=== PATIENT | male | born 1935 | race Caucasian/White ===

== ENCOUNTER 2017-05-29 03:04 | Emergency (ER) | payer MEDICARE, OTHER ==
[2017-05-29 03:47] VITALS: BP 149/85
--- NOTE | 2017-05-29 04:05 | EDM.PDOC ---
ED HPI GENERAL MEDICAL PROBLEM - General Chief Complaint: General Stated Complaint: IN BY AMBULANCE Time Seen by Provider: 05/29/17 03:55 Source of Information: Reports: Patient History Limitations: Reports: No Limitations - History of Present Illness INITIAL COMMENTS - FREE TEXT/NARRATIVE: This 82 yo male patient was brought to the ED by [facility] due to an abrupt onset of dizziness. The patient reports that he was feeling very normally when he went to bed at 2230, but when he woke up to use the bathroom prior to calling the ambulance he was dizzy. The patient reports no history of similar symptoms in the past. The patient reports that he continues to feel a little dizzy when he sits up or moves abruptly. Onset: Today Duration: Minutes:, Intermittent Location: Reports: Generalized Quality: Reports: Other Severity: Moderate Improves with: Reports: Rest Worsens with: Reports: Movement Associated Symptoms: Reports: Syncope, Other (dizziness with movement ) - Related Data Allergies Allergy/AdvReac Type Severity Reaction Status Date / Time No Known Allergies Allergy Verified 07/05/16 22:25 Home Meds: Home Meds Lisinopril 20 mg PO DAILY 07/05/16 [History] Meloxicam [Meloxicam] 15 mg PO DAILY 07/05/16 [History] glyBURIDE [Glyburide] 5 mg PO DAILY 07/05/16 [History] Past Medical History Cardiovascular History: Reports: Hypertension Endocrine/Metabolic History: Reports: Diabetes, Type II Social & Family History - Tobacco Use Smoking Status *Q: Former Smoker - Caffeine Use Caffeine Use: Reports: Coffee, Soda - Recreational Drug Use Recreational Drug Use: No ED ROS GENERAL - Review of Systems Review Of Systems: ROS reveals no pertinent complaints other than HPI. ED EXAM, GENERAL - Physical Exam Exam: Not Obtained Exam Limited By: No Limitations General Appearance: Alert, WD/WN, Mild Distress Eye Exam: Bilateral Eye: EOMI, Normal Inspection, PERRL Ears: Normal External Exam, Normal Canal, Hearing Grossly Normal, Normal TMs Nose: Normal Inspection, Normal Mucosa, No Blood Throat/Mouth: Normal Inspection, Normal Lips, Normal Teeth, Normal Gums, Normal Oropharynx, Normal Voice, No Airway Compromise Head: Atraumatic, Normocephalic Neck: Normal Inspection, Supple, Non-Tender, Full Range of Motion Respiratory/Chest: No Respiratory Distress, Lungs Clear, Normal Breath Sounds, No Accessory Muscle Use, Chest Non-Tender Cardiovascular: Normal Peripheral Pulses, Regular Rate, Rhythm, No Edema, No Gallop, No JVD, No Murmur, No Rub, Other (irregular beats) GI/Abdominal: Normal Bowel Sounds, Soft, Non-Tender, No Organomegaly, No Distention, No Abnormal Bruit, No Mass (Male) Exam: Deferred Rectal (Males) Exam: Deferred Back Exam: Normal Inspection, Full Range of Motion, NT Extremities: Normal Inspection, Normal Range of Motion, Non-Tender, Normal Capillary Refill, No Pedal Edema Neurological: Alert, Oriented, CN II-XII Intact, Normal Cognition, Normal Gait, Normal Reflexes, No Motor/Sensory Deficits Psychiatric: Normal Affect, Normal Mood Skin Exam: Warm, Dry, Intact, Normal Color, No Rash Lymphatic: No Adenopathy EKG INTERPRETATION EKG Date: 05/29/17 Time: 04:00 Rhythm: NSR [place]: Normal P-Wave: Present QRS: Normal ST-T: Normal QT: Normal Comparison: NA - No Prior EKG EKG Interpretation Comments: NSR with PAC's Course - Vital Signs Last Recorded V/S: Last Vital Signs Temp 37.3 C 05/29/17 03:46 Pulse 64 05/29/17 03:46 Resp 20 05/29/17 03:46 BP 149/85 H 05/29/17 03:46 Pulse Ox 98 05/29/17 03:46 - Orders/Labs/Meds Orders: Active Orders 24 hr Category Date Time Status EKG Documentation Completion [RC] URGENT Care 05/29/17 03:43 Active Orthostatic Vital Signs [RC] ASDIRECTED Care 05/29/17 04:26 Active Labs: Laboratory Tests 05/29/17 05/29/17 Range/Units 03:50 03:50 WBC 8.9 (5.0-10.0) 10^3/uL RBC 4.83 (4.6-6.2) 10^6/uL Hgb 14.9 (14.0-18.0) g/dL Hct 44.1 (40.0-54.0) % MCV 91.3 (80-100) fL MCH 30.8 (27.0-34.0) pg MCHC 33.8 (33.0-35.0) g/dL Plt Count 135 L (150-450) 10^3/uL Neut % (Auto) 83.0 H (42.2-75.2) % Lymph % (Auto) 6.7 L (20.5-50.1) % [place] % (Auto) 8.1 H (2-8) % Eos % (Auto) 1.6 (1.0-3.0) % Baso % (Auto) 0.6 (0.0-1.0) % Sodium 135 (135-145) mmol/L Potassium 4.7 (3.6-5.0) mmol/L Chloride 102 (101-111) mmol/L Carbon Dioxide 25.0 (21.0-31.0) mmol/L Anion Gap 12.7 BUN 25 H (7-18) mg/dL Creatinine 1.4 H (0.6-1.3) mg/dL Est Cr Clr Drug Dosing 44.14 mL/min Estimated GFR (MDRD) 49 BUN/Creatinine Ratio 17.85 Glucose 150 H (74-105) mg/dL Calcium 9.0 (8.4-10.2) mg/dl Total Bilirubin 1.2 H (0.2-1.0) mg/dL AST 26 (10-42) IU/L ALT 27 (10-60) IU/L Alkaline Phosphatase 55 (42-121) IU/L Troponin I 0.04 H* (0.00-0.02) ng/ml Total Protein 6.7 (6.7-8.2) g/dl Albumin 4.3 (3.2-5.5) g/dl Globulin 2.4 Albumin/Globulin Ratio 1.79 Meds: Medications Discontinued Medications Generic Name Dose Route Start Last Admin Trade Name Michaelq PRN Reason Stop Dose Admin Meclizine HCl 25 mg 05/29/17 05:09 Antivert PO 05/29/17 05:10 ONETIME ONE Departure - Departure Time of Disposition: 05:11 Disposition: Home, Self-Care 01 Condition: Fair Clinical Impression: Vertigo - Discharge Information Instructions: Vertigo, [id number] Forms: ED Department Discharge Care Plan Goals: The patient and family were advised of the examination, EKG and lab results during the visit. The patient was given an oral dose of Meclizine while in the ED. The patient was discharged with a script for Meclizine (25 mg) #20 to take 1 by mouth 3 times per day as needed for dizziness. If the patient has any additional symptoms or further concerns, the patient should follow-up with his primary care facility or return to the emergency department. - My Orders Last 24 Hours: My Active Orders 05/29/17 03:43 EKG Documentation Completion [RC] URGENT 05/29/17 04:26 Orthostatic Vital Signs [RC] ASDIRECTED - Assessment/Plan Last 24 Hours: My Active Orders 05/29/17 03:43 EKG Documentation Completion [RC] URGENT 05/29/17 04:26 Orthostatic Vital Signs [RC] ASDIRECTED
[2017-05-29] MEDS ORDERED: Meclizine 12.5 MG Tab PO ONE (05:09)
--- NOTE | 2017-05-29 21:14 | EKG ---
05/29/2017 - LINDA TOLEDO - This 12-lead EKG shows a normal sinus rhythm with a ventricular rate of 70. There are occasional PVCs. Normal axis and intervals. No acute ST-segment or T- wave changes. [facility] /[id number]
== END 2017-05-29 05:30 | disposition home or self-care (01) ==
LOC: DL.ED 03:04
DX: R42 Dizziness and giddiness (principal); I10 Essential (primary) hypertension; E11.9 Type 2 diabetes mellitus without complications; Z79.84 Long term (current) use of oral hypoglycemic drugs; Z87.891 Personal history of nicotine dependence
CPT/HCPCS: 36415; 71045; 80053; 84484; 85025; 93005; 93010; A9270; 99283; 99284